=== PATIENT | male | born 1945 | race Caucasian/White ===

== ENCOUNTER → 2016-09-03 | Outpatient (CLI) | payer OTHER ==
[2016-05-06 15:00] VITALS: BP 172/85
[~2016-09-03] MED LIST: ASPI81TA2 PO; FAMO20TA5 PO; IBUP-1027 PO; INSU100I13 SQ; METF500T4 PO; METO100T2 PO; NIFE30TA7 PO; OMEG1CAP38 PO; POTA10TA31 PO; SIMV20TA3 PO; TAMS0.4C2 PO; VALS1TAB22 PO; VIT1TABL32 PO
--- NOTE | 2016-09-03 16:19 | KCIC ---
PROCEDURE Two-view chest HISTORY Cough for 1 week, bronchitis COMPARISON None FINDINGS Two views of the chest are submitted. There has been a median sternotomy. Pericardial cardiac silhouette is upper limits of normal. There is no pneumothorax. There is a small more focal opacity at the left lung base level of the 9th and 10th ribs. There is multilevel thoracic spondylosis. There is no significant dependent pleural fluid. IMPRESSION 1. There is small more focal opacity at the left lung base. Lung nodule is not excluded, small focus of infiltrate other possibility. Short-term radiographic followup in [address] evaluation is advised. Electronically signed by: Ramsey Gaffney MD (Sep 03, 2016 16:18:45)
== END | disposition home or self-care (01) ==
LOC: KCIC 15:42
PROVIDERS: ATTEND Physician Assistant Medical
DX: J40 Bronchitis, not specified as acute or chronic (principal); M47.894 Other spondylosis, thoracic region
CPT/HCPCS: 71020

== ENCOUNTER → 2016-11-11 | Outpatient (CLI) | payer OTHER ==
[2016-05-06 15:00] VITALS: BP 172/85
--- NOTE | 2016-11-11 16:46 | RAD ---
PROCEDURE MRI brain without contrast. HISTORY Memory loss and confusion. Unsteady gait. TECHNIQUE Sagittal T1, axial T1, axial T2, axial FLAIR, axial T2 gradient, coronal T2, and diffusion imaging with ADC map were performed. There is motion degradation, most notably on the FLAIR series. COMPARISON CT head May 05, 2016. FINDINGS The ventricles and sulci are within normal limits for age. FLAIR hyperintensities in the supratentorial white matter are nonspecific but most suggestive of mild small vessel ischemic disease. There is no acute intracranial hemorrhage or extra-axial fluid collection. There is no mass effect or midline shift. There is no restricted diffusion to suggest an acute infarct. Cervicomedullary junction is unremarkable. Intracranial flow voids are preserved. There probably origins of both posterior cerebral arteries. There is minimal ethmoid and maxillary mucosal thickening. IMPRESSION No acute intracranial findings. Brain parenchymal volume loss and probable small vessel ischemic disease. Electronically signed by: Haim Guadarrama MD (Nov 11, 2016 16:45:15)
== END | disposition home or self-care (01) ==
LOC: MRI 14:59
PROVIDERS: ATTEND Physician Assistant
DX: R41.89 Other symptoms and signs involving cognitive functions and awareness (principal); R41.0 Disorientation, unspecified
CPT/HCPCS: 70551

== ENCOUNTER → 2016-12-16 | Outpatient (CLI) | payer OTHER ==
[2016-05-06 15:00] VITALS: BP 172/85
--- NOTE | 2016-12-18 11:47 | EEG ---
DATE OF SERVICE: 12/16/2016 EEG DATE: 12/16/2016 EEG NUMBER: [id number]. OBJECTIVE: This is a 71-year-old male patient with history of memory loss; cognitive function impairment. EEG was requested to evaluate cerebral activity. METHODS: Sixteen electrodes were applied according to the international 10-20 electrode placement system. EKG monitoring, hyperventilation, intermittent photic stimulation, monopolar and bipolar montages were routinely utilized. The record was obtained on a digital system with video monitoring. MEDICATIONS: No anti-seizure medication. FINDINGS: 1. Background: The patient was recorded in the awake, drowsy and sleep states. The overall background amplitude is 5-15 microvolts. A posterior dominant rhythm of 7-8 Hz is observed, but most time is in 8 Hz range. 2. Abnormalities: No specific epileptiform discharge or electrographic seizure is seen. No focal or diffuse slowing. 3. Activation: Hyperventilation was performed with good efforts and normal response. Intermittent photic stimulation was performed with photic driving. No specific epileptiform discharge or electrographic seizure induced by hyperventilation or intermittent photic stimulation. IMPRESSION: This EEG is a borderline study for the awake, drowsy, and sleep states. No focal, lateralizing, specific epileptiform discharge or electrographic seizure is seen. SHANTELL LITTLE MD DR: IVON/johanna JOB#: [id number] / [id number] JEYSON
== END | disposition home or self-care (01) ==
LOC: RT 11:01
PROVIDERS: ATTEND Psychiatry & Neurology Neurology
DX: G31.84 Mild cognitive impairment of uncertain or unknown etiology (principal)
CPT/HCPCS: 95816

== ENCOUNTER → 2018-01-25 | Outpatient (CLI) | payer OTHER | END | disposition home or self-care (01) | LOC: RT 12:02 | DX: R41.3 Other amnesia (principal); E11.9 Type 2 diabetes mellitus without complications; K21.9 Gastro-esophageal reflux disease without esophagitis; I10 Essential (primary) hypertension | CPT/HCPCS: 95816 ==